=== PATIENT | female | born 1950 | race Caucasian/White ===

== ENCOUNTER 2020-12-03 11:38 | Inpatient (IN) ==
[2020-12-03] MEDS ORDERED: POTASSIUM CHLORIDE RIDER 10 MEQ/100 ML PREMIX IV PRN (12:37)
[2020-12-03] MEDS ORDERED: ACETAMINOPHEN 325 MG TABLET PO PRN (12:37)
[2020-12-03] MEDS ORDERED: ONDANSETRON 4 MG/2 ML VIAL IV PRN (12:37)
[2020-12-03] MEDS ORDERED: MAGNESIUM SULF RIDER 2 GM/50 ML PREMIX IV PRN (12:37)
[2020-12-03] MEDS ORDERED: MAGNESIUM SULF RIDER 4 GM/100 ML PREMIX IV PRN (12:37)
[2020-12-03] MEDS ORDERED: traMADol 50 MG TABLET PO PRN (12:37)
[2020-12-03] MEDS ORDERED: PANTOPRAZOLE 40 MG TABLET PO SCH (13:00)
[2020-12-03 13:18] LABS: Basophils % 0.5 % (0.0-0.8); Eosinophils # 0.1 10*3/uL (0.0-0.87); Eosinophils % 1.7 % (0.00-10.9); Hematocrit 27.4 VOL% (35.7-47.0); Hemoglobin 8.6 GM/DL (12.0-16.0); Immature Granulocytes % 0.7 %; Immature Granulocytes Absolute 0.03 #; Lymphocytes # 0.9 10*3/uL (1.4-4.0); Lymphocytes % 20.2 % (21.3-54.2); Mean Corpuscular HGB Conc 31.4 GM/DL (32-36); Mean Corpuscular Volume 97.5 FL (87-102); Mean Platelet Volume 9.1 FL (9.6-12.0); Monocytes % 10.2 % (1.7-12.7); Neutrophils % 66.7 % (38.7-73.9); Platelet Count 178 T/CUMM (130-400); Red Blood Count 2.81 MC/CUMM (3.8-5.5); Red Cell Distribution Width 13.7 % (9.3-17.3); White Blood Count 4.2 T/CUMM (4-12)
[2020-12-03 13:40] LABS: Alanine Aminotransferase 26 U/L (13-56); Albumin 3.6 G/DL (3.4-5.0); Alkaline Phosphatase 78 U/L (45-117); Aspartate Amino Transferase 19 U/L (0-37); Bilirubin,Total < 0.39 MG/DL (0.20-1.00); Blood Urea Nitrogen 18 MG/DL (7-18); Calcium 9.5 MG/DL (8.5-10.1); Carbon Dioxide 31 MMOL/L (21-32); Glucose 118 MG/DL (74-106); Osmolality,Calculated 277.7 MOS/KG (273-304); Potassium 4.3 MMOL/L (3.5-5.1); Sodium 138 MMOL/L (136-145); Total Protein 6.7 G/DL (6.4-8.2)
[2020-12-03 13:41] LABS: Estimated Glom Filtration Rate 0 ML/MIN
[2020-12-03 15:58] LABS: Bilirubin,Urine Negative (Negative); Blood, Urine Negative (Negative); Glucose,Urine (UA) Negative (Negative); Ketones,Urine Negative (Negative); Nitrite,Urine Negative (Negative); Protein,Urine Negative; RBC,Urine 2 /HPF (0-4); Squamous Epithelial Cell,Urine Occasional /HPF (0-10); Urine Appearance CLEAR (Clear); Urine Color Straw (Yellow); Urine Specific Gravity 1.006 (1.001-1.035); Urine Urobilinogen < 2.0 EU/DL (0.2-1.0)
[2020-12-03] MEDS: FAMOTIDINE INJ 40 MG in SODIUM CHLORIDE 0.9% 100 ML IV SCH (16:30)
[2020-12-03] MEDS: DOCUSATE SODIUM 100 MG CAPSULE PO SCH (20:24)
[2020-12-04] MEDS: FAMOTIDINE INJ 40 MG in SODIUM CHLORIDE 0.9% 100 ML IV SCH ×2 (03:47→19:38)
[2020-12-04 05:12] LABS: Basophils % 0.8 % (0.0-0.8); Eosinophils # 0.1 10*3/uL (0.0-0.87); Hematocrit 24.7 VOL% (35.7-47.0); Hemoglobin 7.8 GM/DL (12.0-16.0); Immature Granulocytes % 0.3 %; Immature Granulocytes Absolute 0.01 #; Lymphocytes # 1.2 10*3/uL (1.4-4.0); Lymphocytes % 30.8 % (21.3-54.2); Mean Corpuscular HGB Conc 31.6 GM/DL (32-36); Mean Corpuscular Volume 96.1 FL (87-102); Mean Platelet Volume 9.6 FL (9.6-12.0); Monocytes % 12.8 % (1.7-12.7); Neutrophils % 52.3 % (38.7-73.9); Platelet Count 177 T/CUMM (130-400); Red Blood Count 2.57 MC/CUMM (3.8-5.5); Red Cell Distribution Width 13.8 % (9.3-17.3)
[2020-12-04 05:46] LABS: Alanine Aminotransferase 31 U/L (13-56); Albumin 3.2 G/DL (3.4-5.0); Alkaline Phosphatase 68 U/L (45-117); Aspartate Amino Transferase 26 U/L (0-37); Bilirubin,Total < 0.39 MG/DL (0.20-1.00); Blood Urea Nitrogen 11 MG/DL (7-18); Calcium 8.5 MG/DL (8.5-10.1); Carbon Dioxide 30 MMOL/L (21-32); Estimated Glom Filtration Rate 102 ML/MIN; Glucose 103 MG/DL (74-106); Osmolality,Calculated 279.3 MOS/KG (273-304); Potassium 3.7 MMOL/L (3.5-5.1); Sodium 141 MMOL/L (136-145); Total Protein 5.8 G/DL (6.4-8.2)
[2020-12-04] MEDS: LACTATED RINGERS 1,000 ML IV SCH (08:10)
[2020-12-04] MEDS: DOCUSATE SODIUM 100 MG CAPSULE PO SCH ×2 (09:04→21:11)
[2020-12-04] MEDS ORDERED: LIDOCAINE 2% 5 ML VIAL ONE (09:18)
[2020-12-04] MEDS ORDERED: propofoL 200 MG/20 ML VIAL IV ONE ×2 (09:18→09:27)
[2020-12-04] MEDS ORDERED: SODIUM CHLORIDE 0.9% 1,000 ML IV PRN (09:33)
[2020-12-04 11:15] LABS: Hematocrit 24.6 VOL% (35.7-47.0); Hemoglobin 7.8 GM/DL (12.0-16.0)
[2020-12-04 23:29] LABS: Hematocrit 30.8 VOL% (35.7-47.0)
[2020-12-04 23:33] LABS: Hemoglobin 10.1 GM/DL (12.0-16.0)
[2020-12-05 08:26] VITALS: BP 123/62
[2020-12-05] MEDS: LACTATED RINGERS 1,000 ML IV SCH (08:40)
[2020-12-05] MEDS: DOCUSATE SODIUM 100 MG CAPSULE PO SCH (09:33)
== END 2020-12-05 11:14 | disposition home or self-care (01) | DRG 393 ==
LOC: N.TELES
PROVIDERS: ADMIT Family Medicine; ATTEND Family Medicine

== ENCOUNTER 2021-12-14 01:15 | Inpatient (IN) ==
[2021-12-14 01:54] LABS: Basophils % 0.4 % (0.0-0.8); Eosinophils # 0.2 10*3/uL (0.0-0.87); Eosinophils % 3.4 % (0.00-10.9); Hematocrit 36.5 VOL% (35.7-47.0); Hemoglobin 11.6 GM/DL (12.0-16.0); Immature Granulocytes % 0.3 %; Immature Granulocytes Absolute 0.02 #; Lymphocytes # 1.6 10*3/uL (1.4-4.0); Lymphocytes % 22.4 % (21.3-54.2); Mean Corpuscular HGB Conc 31.8 GM/DL (32-36); Mean Corpuscular Volume 95.3 FL (87-102); Mean Platelet Volume 9.1 FL (9.6-12.0); Monocytes # 0.9 10*3/uL (0.11-0.8); Monocytes % 11.9 % (1.7-12.7); Neutrophils % 61.6 % (38.7-73.9); Platelet Count 225 T/CUMM (130-400); Red Blood Count 3.83 MC/CUMM (3.8-5.5); Red Cell Distribution Width 13.5 % (9.3-17.3); White Blood Count 7.1 T/CUMM (4-12)
[2021-12-14] MEDS ORDERED: DILTIAZEM 25 MG/5 ML VIAL IV STA (02:05)
[2021-12-14 02:07] LABS: INR 0.9; PT Patient Result 10.4 SECS (10.1-12.1); Partial Thromboplastin Time 31.3 SECS (23.7-32.9)
[2021-12-14 02:13] LABS: Albumin 3.6 G/DL (3.4-5.0); Bilirubin,Total 0.4 MG/DL (0.20-1.00); Calcium 9.2 MG/DL (8.5-10.1); Osmolality,Calculated 270.4 MOS/KG (273-304); Potassium 3.7 MMOL/L (3.5-5.1); Total Protein 7.4 G/DL (6.4-8.2)
[2021-12-14] MEDS ORDERED: AMIODARONE INJ 150 MG in DEXTROSE 5% 100 ML IV ONE (02:40)
[2021-12-14] MEDS ORDERED: SODIUM CHLORIDE 0.9% 1,000 ML IV STA (02:51)
[2021-12-14] MEDS ORDERED: AMIODARONE INJ 450 MG in DEXTROSE 5% 241 ML IV SCH ×2 (03:00→04:30)
[2021-12-14] MEDS ORDERED: POTASSIUM CHLORIDE 20 MEQ TABLET PO ONE (03:25)
[2021-12-14] MEDS ORDERED: POTASSIUM CHLORIDE RIDER 10 MEQ/100 ML PREMIX IV SCH (03:30)
[2021-12-14] MEDS ORDERED: ONDANSETRON 4 MG/2 ML VIAL IV PRN (04:08)
[2021-12-14] MEDS ORDERED: ACETAMINOPHEN 325 MG TABLET PO PRN (04:08)
[2021-12-14] MEDS ORDERED: SODIUM CHLORIDE 0.9% 1,000 ML IV SCH (04:30)
[2021-12-14] MEDS ORDERED: INFLUENZA VIRUS VACCINE 0.5 ML SYRINGE IM ONE (09:00)
[2021-12-14] MEDS: ASPIRIN EC 81 MG TABLET PO SCH (11:57)
[2021-12-14] MEDS: CETIRIZINE 10 MG TABLET PO SCH (11:57)
[2021-12-14] MEDS ORDERED: AMIODARONE 200 MG TABLET PO ONE ×2 (12:47→20:00)
[2021-12-14 17:06] VITALS: BP 118/77
[2021-12-14] MEDS: ASCORBIC ACID 500 MG TABLET PO SCH (20:32)
[2021-12-14] MEDS ORDERED: ATORVASTATIN 10 MG TABLET PO SCH (21:00)
[2021-12-14] MEDS ORDERED: rOPINIRole 0.25 MG TABLET PO SCH (21:00)
[2021-12-14] MEDS ORDERED: ANASTROZOLE 1 MG TABLET PO SCH (21:00)
[2021-12-15 04:09] LABS: Basophils % 0.6 % (0.0-0.8); Eosinophils # 0.3 10*3/uL (0.0-0.87); Eosinophils % 5.4 % (0.00-10.9); Hematocrit 31.8 VOL% (35.7-47.0); Hemoglobin 10.2 GM/DL (12.0-16.0); Immature Granulocytes % 0.4 %; Immature Granulocytes Absolute 0.02 #; Lymphocytes # 1.2 10*3/uL (1.4-4.0); Lymphocytes % 22.1 % (21.3-54.2); Mean Corpuscular HGB Conc 32.1 GM/DL (32-36); Mean Corpuscular Volume 95.2 FL (87-102); Mean Platelet Volume 9.2 FL (9.6-12.0); Monocytes # 0.7 10*3/uL (0.11-0.8); Monocytes % 13.3 % (1.7-12.7); Neutrophils % 58.2 % (38.7-73.9); Platelet Count 201 T/CUMM (130-400); Red Blood Count 3.34 MC/CUMM (3.8-5.5); Red Cell Distribution Width 13.6 % (9.3-17.3); White Blood Count 5.4 T/CUMM (4-12)
[2021-12-15 04:28] LABS: Calcium 7.8 MG/DL (8.5-10.1); Potassium 4.2 MMOL/L (3.5-5.1)
[2021-12-15 04:39] LABS: Free T4 (Free Thyroxine) 1.16 NG/DL (0.76-1.46); Thyroid Stimulating Hormone 2.96 uIU/ml (0.358-3.74)
[2021-12-15] MEDS ORDERED: AMIODARONE 200 MG TABLET PO SCH (09:00)
[2021-12-15] MEDS: ASPIRIN EC 81 MG TABLET PO SCH (09:02)
[2021-12-15] MEDS: ASCORBIC ACID 500 MG TABLET PO SCH (09:02)
[2021-12-15] MEDS: CETIRIZINE 10 MG TABLET PO SCH (09:02)
[2021-12-16] MEDS ORDERED: AMIODARONE 200 MG TABLET PO SCH (09:00)
== END 2021-12-15 11:55 | disposition home or self-care (01) | DRG 310 ==
LOC: N.ICU 01:15 → N.ED 01:15 → N.ICU 04:31
PROVIDERS: ADMIT Family Medicine; ATTEND Family Medicine